=== PATIENT | female | born 1955 | race Caucasian/White ===

== ENCOUNTER 2016-06-10 21:58 | Emergency (ER) | payer OTHER ==
[2016-06-10] MEDS ORDERED: FLEXERIL PO ONE (22:54)
[2016-06-10] MEDS ORDERED: DILAUDID IM ONE (22:55)
[2016-06-10] MEDS ORDERED: ZOFRAN ODT PO ONE (22:55)
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
[2016-06-11 01:39] VITALS: BP 106/84
--- NOTE | 2016-06-11 10:48 | Diag Imaging Result Document ---
PROCEDURE NAME: WRIST COMPLETE LEFT - 06/10/2016 LEFT WRIST, 3 VIEWS: FINDINGS: There is no fracture or dislocation identified. There are mild degenerative changes at the 1st carpometacarpal joint. IMPRESSION: No evidence of fracture or dislocation.
--- NOTE | 2016-06-11 10:48 | Diag Imaging Result Document ---
PROCEDURE NAME: HAND COMPLETE RIGHT - 06/10/2016 RIGHT HAND, 3 VIEWS: FINDINGS: There is no fracture or dislocation identified. There are mild degenerative changes. IMPRESSION: No evidence of fracture or dislocation.
--- NOTE | 2016-06-11 10:49 | Diag Imaging Result Document ---
PROCEDURE NAME: KNEE 3 VIEWS RIGHT - 06/10/2016 RIGHT KNEE, 3 VIEWS: COMPARISON: 04/04/2015. FINDINGS: There are mild degenerative changes. There is no evidence of fracture or dislocation. There is no substantial thickening of the suprapatellar bursa apparent. IMPRESSION: Mild degenerative changes. No evidence of fracture or dislocation.
--- NOTE | 2016-06-11 10:51 | Diag Imaging Result Document ---
PROCEDURE NAME: FOOT COMPLETE LEFT - 06/10/2016 LEFT FOOT, 3 VIEWS: FINDINGS: There is calcaneal spurring at the plantar fascia insertion. There are mild degenerative changes elsewhere. There is slight hallux valgus. There is an accessory ossicle near the ventral cuboid. There is no fracture or dislocation identified. IMPRESSION: No evidence of fracture or dislocation.
--- NOTE | 2016-06-11 10:51 | Diag Imaging Result Document ---
PROCEDURE NAME: FOOT COMPLETE RIGHT - 06/10/2016 RIGHT FOOT, 3 VIEWS: FINDINGS: There is calcaneal spurring at the plantar fascia insertion. There are mild degenerative changes elsewhere. There is mild hallux valgus. There is a possible tiny erosion at the medial base of the 1st metatarsal. There is an apparent accessory ossicle near the plantar cuboid. There is no fracture or dislocation identified. IMPRESSION: No fracture or dislocation identified.
== END 2016-06-11 01:45 | disposition home or self-care (01) ==
LOC: ED 21:58
DX: M25.561 Pain in right knee (principal); M79.672 Pain in left foot; M79.671 Pain in right foot; M79.641 Pain in right hand; M25.532 Pain in left wrist; I10 Essential (primary) hypertension; E78.5 Hyperlipidemia, unspecified; J44.9 Chronic obstructive pulmonary disease, unspecified; M19.90 Unspecified osteoarthritis, unspecified site; G89.29 Other chronic pain; F17.210 Nicotine dependence, cigarettes, uncomplicated; Z71.6 Tobacco abuse counseling; Z87.440 Personal history of urinary (tract) infections; W22.09XA Striking against other stationary object, initial encounter
CPT/HCPCS: J1170